=== PATIENT | male | born 1940 | race Caucasian/White ===

== ENCOUNTER → 2024-11-13 | Outpatient (CLI) | payer MEDICARE, SELFPAY ==
--- NOTE | 2024-11-13 13:34 | MRI_ITS ---
PROCEDURE: PELVIS W/WO CONTRAST ([id number]), 11/13/2024 REASON FOR EXAM: EVAL FOR PROSTATE CANCER RECURRENCE IN PROSTATE. PSA reportedly 5.13. TECHNIQUE: Multisequence multiplanar MRI pelvis was performed with and without IV contrast. CONTRAST: 15 mL Clariscan COMPARISON: None FINDINGS: Prostate size: 3.9 x 2.7 3.2 cm, estimated volume 17.5 mL. Per the above provided PSA, PSA density is 0.286 ng/mL. Prostate: Brachytherapy seeds present. Ill-defined T2 hypointensity throughout the gland probably to some degree reflecting background changes of prostatitis and/or posttreatment fibrosis related to brachytherapy, and making delineation of additional discrete lesions on T2 very challenging. Within the RIGHT lateral aspect extending from base to apex but centered in the midgland, there is focal suspicious nodular enhancement and restricted diffusion spanning roughly 2.0 cm, again very difficult to delineate on T2 (series 15.8, image 12). Unclear if this originates from the peripheral or transition zone given ill-defined zonal anatomy which may be treatment related. In the absence of prior therapy, findings would be most consistent with PI-RADS 5. Extracapsular extension:Although there is no gross extracapsular extension, there is capsular abutment well over than 1 cm which increases the risk of occult early/microscopic extracapsular extension. Note that this includes the region of the RIGHT neurovascular bundle with immediate abutment of the base of the RIGHT seminal vesicle, without definite invasion of either structure although early/microscopic involvement cannot be excluded. Neurovascular bundles: As above.. Seminal vesicles: As above.. Bladder: Underdistended and suboptimally evaluated. Mild trabeculation suggests chronic bladder outlet obstruction. Lymph nodes: No overt pelvic lymphadenopathy. Prominent but nonenlarged distal RIGHT external iliac node by PI-RADS criteria, 7 mm short axis. Bones: Mildly heterogeneous marrow signal without frankly destructive or convincingly discrete bony lesion identified.. Other: Partially imaged slightly loculated RIGHT hydrocele versus epididymal cysts or other cystic abnormality, at least 2.6 cm. MRI/Pelvis W/WO Contrast IMPRESSION: 1. Note that in the setting of previous therapy for prostate cancer, PI-RADS ca nnot be applied as it is intended for treatment naive glands. However, above findings are suspicious for local recurrence, and in the absence of prior therapy, a 2.0 cm lesion centered in the RIGHT lateral gland would be most consistent with PI-RADS 5. 2. Although there is no gross extracapsular extension, there is capsular abutme nt well over than 1 cm which increases the risk of occult early/microscopic extracapsular extension. Note that this includes the r egion of the RIGHT neurovascular bundle with immediate abutment of the base of the RIGHT seminal vesicle, without definite i nvasion of either structure although early/microscopic involvement cannot be excluded. 3. No overt pelvic lymphadenopathy. Mildly prominent distal RIGHT external sheri ac node by PI-RADS criteria may be reactive. 4. Recommend scrotal ultrasound for findings on the RIGHT which are partially i jorge and incompletely evaluated. 5. Additional description as above. Reading Location: [id number]
== END | disposition home or self-care (01) ==
PROVIDERS: PCP Family Medicine; Referring Provider Student in an Organized Health Care Education/Training Program; Visit Provider Student in an Organized Health Care Education/Training Program
DX: C61 Malignant neoplasm of prostate (principal)
CPT/HCPCS: 72197; A9575; A4216

== ENCOUNTER → 2025-04-06 | Outpatient (CLI) | payer MEDICARE, SELFPAY ==
--- NOTE | 2025-04-06 08:01 | MRI_ITS ---
PROCEDURE: PELVIS W/WO CONTRAST, 04/06/2025 REASON FOR EXAM: RECURRENT PROSTATE CANCER, EVAL EXTENT OF DISEASE TECHNIQUE: Multisequence multiplanar MRI pelvis was performed with and without IV contrast. IV Contrast: 15 mL Clariscan COMPARISON: 11/13/2024 FINDINGS: Variable overall mild motion limitation, the effect of which is magnified by the small size of the gland. A few sequences are moderately motion degraded. Prostate size: 4.2 x 2.7 x 3.0 cm, estimated volume 17.7 mL. Prostate appearance: Brachytherapy seeds again present. Redemonstrated nodular marked restricted diffusion with early/contemporaneous enhancement involving the majority of the RIGHT peripheral zone including anterior and posterior aspects extending from base to apex spanning up to roughly 1.9 cm in the axial plane and at least 2.0 cm craniocaudal (series 12 image 13-16, series 10, image 14). In the absence of prior therapy, findings would be consistent with PI-RADS 5. Background changes of likely prostatitis. Extracapsular extension: New gross involvement of the immediately adjacent RIGHT seminal vesicle with asymmetric enlargement, nodular restricted diffusion and enhancement. Additional broad-based capsular abutment well over 1 cm increasing the risk of additional areas of early/microscopic extracapsular extension. Note that this includes abutment of the RIGHT neurovascular bundle, without definite invasion. Neurovascular bundles: As above. Seminal vesicles: As above. Bladder: Underdistended and suboptimally evaluated. Appearance suggests mild chronic bladder outlet obstruction. Lymph nodes: Unremarkable. Bones: No destructive or frankly suspicious bony lesions identified on nondedicated evaluation. Other: Grossly similar scrotal findings.. MRI/Pelvis W/WO Contrast IMPRESSION: 1. Note again that in the setting of previous therapy for prostate cancer, PI-R ADS cannot be applied. 2. New gross involvement of the RIGHT seminal vesicle by an otherwise similar s uspicious roughly 2.0 cm lesion involving majority of the RIGHT peripheral zone. Additional broad-based capsular abutment well ov er 1 cm again notably increasing the risk of additional areas of early/microscopic extracapsular extension, including abutme nt of the RIGHT neurovascular bundle, without definite involvement. 3. No overt pelvic lymphadenopathy. 4. Additional description as above. Reading Location: [id number]
== END | disposition home or self-care (01) ==
PROVIDERS: PCP Family Medicine; Referring Provider Student in an Organized Health Care Education/Training Program; Visit Provider Student in an Organized Health Care Education/Training Program
DX: C61 Malignant neoplasm of prostate (principal); R97.21 Rising PSA following treatment for malignant neoplasm of prostate
CPT/HCPCS: 72197; A9581